=== PATIENT | male | born 1940 | race Caucasian/White ===

== ENCOUNTER 2020-07-28 03:50 | Observation (INO) ==
[2020-07-28] MEDS ORDERED: ONDANSETRON 4 MG/2 ML VIAL IV PRN (05:39)
[2020-07-28] MEDS ORDERED: ACETAMINOPHEN 325 MG TABLET PO PRN (05:39)
[2020-07-28] MEDS ORDERED: GLUCAGON 1 MG VIAL IM PRN ×2 (05:39→06:22)
[2020-07-28] MEDS ORDERED: DEXTROSE 50% 25 GM/50 ML VIAL IV PRN ×2 (05:39→06:22)
[2020-07-28 07:11] LABS: Basophils % 0.6 % (0.0-0.8); Eosinophils # 0.2 10*3/uL (0.0-0.87); Eosinophils % 2.7 % (0.00-10.9); Hematocrit 35.8 VOL% (42.0-52.0); Hemoglobin 11.7 GM/DL (14.0-18.0); Immature Granulocytes % 0.2 %; Immature Granulocytes Absolute 0.01 #; Lymphocytes # 1.9 10*3/uL (1.4-4.0); Lymphocytes % 29.1 % (21.2-54.2); Mean Corpuscular HGB Conc 32.7 GM/DL (32-36); Mean Corpuscular Volume 97.8 FL (87-102); Mean Platelet Volume 10.6 FL (9.6-12.0); Monocytes % 11.4 % (1.7-12.7); Platelet Count 105 T/CUMM (130-400); Red Blood Count 3.66 MC/CUMM (3.8-5.5); White Blood Count 6.7 T/CUMM (4-12)
[2020-07-28 07:47] LABS: Bilirubin,Total 0.9 MG/DL (0.2-1.0); Calcium 8.7 MG/DL (8.5-10.1); Osmolality,Calculated 293.1 MOS/KG (273-304); Potassium 3.9 MMOL/L (3.5-5.1); Risk Ratio 1.81; Total Protein 6.2 G/DL (5.0-7.5); VLDL CHOLESTEROL 7.2 MG/DL
[2020-07-28] MEDS: INSULIN REGULAR 100 UNIT/ML SUBCUT SCH ×3 (08:51→18:00)
[2020-07-28] MEDS ORDERED: PANTOPRAZOLE 40 MG TABLET PO SCH (09:00)
[2020-07-28] MEDS ORDERED: ALUMINUM/MAGNES/SIMETH MAX STR 30 ML UDCUP PO PRN (09:01)
[2020-07-28] MEDS ORDERED: NITROGLYCERIN SL 0.4 MG TABLET SL ONE (13:33)
[2020-07-28] MEDS ORDERED: ALBUTEROL/IPRATROPIUM 3 ML NEB RESP TX SCH ×2 (15:27→19:00)
[2020-07-28] MEDS ORDERED: ALBUTEROL/IPRATROPIUM 3 ML NEB RESP TX ONE (15:32)
[2020-07-28 16:28] VITALS: BP 143/47
[2020-07-28 16:49] LABS: INR 1.1; PT Patient Result 11.7 SECS (9.8-11.9)
== END 2020-07-28 17:53 | disposition home or self-care (01) ==
LOC: N.TELES → SUATTDRO 05:20
PROVIDERS: ADMIT Internal Medicine; ATTEND Internal Medicine